=== PATIENT | male | born 1965 | race Caucasian/White ===

== ENCOUNTER 2017-04-14 13:20 | Emergency (ER) | payer MEDICAID ==
[~2017-04-14] VITALS: Ht 177.8 cm; Wt 64.5 kg
[~2017-04-14 13:20] MED LIST: ACET325T14 PO; NAPR220C2 PO; OXYC1TAB7 PO
[2017-04-14 13:34] VITALS: BP 118/75
[2017-04-14] MEDS ORDERED: DIPH,PERTUSS(ACELL),TET VAC/PF 0.5 ML IM-VACC ONE ×2 (14:23→14:30)
[2017-04-14] MEDS ORDERED: LIDOCAINE 1%, 20ML ONE (14:23)
[2017-04-14] MEDS ORDERED: LIDOCAINE 1%, 20ML SQ ONE (14:30)
[2017-04-14] MEDS ORDERED: BACITRACIN ZINC OINT 500U/GM, 0.9 GM ONE (15:12)
== END 2017-04-14 15:23 | disposition home or self-care (01) ==
LOC: ED 15:12
DX: S61.217A Laceration without foreign body of left little finger without damage to nail, initial encounter (principal); X58.XXXA Exposure to other specified factors, initial encounter; Y93.89 Activity, other specified; Y99.8 Other external cause status; Y92.89 Other specified places as the place of occurrence of the external cause
CPT/HCPCS: 12001; 90471; 90715

== ENCOUNTER 2017-08-01 22:08 | Emergency (ER) | payer MEDICAID ==
[~2017-08-01] VITALS: Ht 177.8 cm; Wt 64.3 kg
[2017-08-01 22:09] VITALS: BP 136/84
[2017-08-01] MEDS ORDERED: IBUPROFEN 200 MG TABLET ONE (22:50)
[2017-08-01] MEDS ORDERED: METHOCARBAMOL 750 MG TABLET ONE (22:50)
[2017-08-01] MEDS ORDERED: IBUPROFEN 200 MG TABLET PO ONE (23:00)
[2017-08-01] MEDS ORDERED: METHOCARBAMOL 750 MG TABLET PO ONE (23:00)
== END 2017-08-02 00:04 | disposition home or self-care (01) ==
LOC: ED 23:59
DX: S39.012A Strain of muscle, fascia and tendon of lower back, initial encounter (principal); J00 Acute nasopharyngitis [common cold]; J02.9 Acute pharyngitis, unspecified; L73.9 Follicular disorder, unspecified; B34.9 Viral infection, unspecified; F17.200 Nicotine dependence, unspecified, uncomplicated; Z86.19 Personal history of other infectious and parasitic diseases; X50.9XXA Other and unspecified overexertion or strenuous movements or postures, initial encounter; X50.0XXA Overexertion from strenuous movement or load, initial encounter; Y93.89 Activity, other specified; Y92.89 Other specified places as the place of occurrence of the external cause; Y99.8 Other external cause status
CPT/HCPCS: 71020; 99284